=== PATIENT | female | born 1940 | race Caucasian/White ===

== ENCOUNTER 2016-12-08 18:34 | Emergency (ER) | payer MEDICARE, BC ==
--- OUTSIDE RECORDS SUMMARY | 2016-12-08 18:47 | XMS REPORT | CCD ---
:1940 Author Name CHITO WARREN Address [address] Unavailable [place], [place] [id number] Care Team Providers Name Role Phone ROSEANNE FELDMAN Attending Physician Unavailable Vital Signs Unknown or Not Available. Allergies Allergy Code Allergy Type Reaction Status Unknown Code - 0 0 Propensity to adverse reactions Active Procedures Procedure Code Procedure Type Date POLYSOMNOGRAM 8917 ICD-9 CM, Volume 3 11/04/[id number] 11/04/2014 History of Immunizations Unknown or Not Available. Problems Unknown or Not Available. Results Unknown or Not Available. Active Medications Unknown or Not Available. Medications Administered During Visit Unknown or Not Available. Encounters Encounter Diagnosis Diagnosis Code Start Date OBSTRUCTIVE SLEEP APNEA 95744 11/04/2014 Social History Smoking Status Code Start Date End Date Never smoker [id number] Patient Decision Aids Unknown or Not Available. Discharge Instructions You were admitted to [facility] on 11/04/2014 with a principal diagnosis of OBSTRUCTIVE SLEEP APNEA. You had the following procedures done:POLYSOMNOGRAM You were discharged from [facility] on 11/04/2014. Should you have any questions prior to discharge, please contact a member of your healthcare team. If you have left the hospital and have any questions, please contact your primary care physician. Chief Complaint and Reason For Visit Chief Complaint Date of Onset SLEEP STUDY Function Status Unknown or Not Available. Plan of Care Unknown or Not Available. Referral/Transition of Care Unknown or Not Available.
--- OUTSIDE RECORDS SUMMARY | 2016-12-08 18:47 | XMS REPORT | CCD ---
:1940 Author Name CHITO WARREN Address [address] Unavailable [place], [place] [id number] Care Team Providers Name Role Phone ROSEANNE FELDMAN Attending Physician Unavailable Vital Signs Unknown or Not Available. Allergies Allergy Code Allergy Type Reaction Status Unknown Code - 0 0 Propensity to adverse reactions Active Procedures Procedure Code Procedure Type Date POLYSOMNOGRAM 8917 ICD-9 CM, Volume 3 01/07/2015 POLYSOMNOGR W/CPAP [id number] SNOMED CT 01/07/2015 History of Immunizations Unknown or Not Available. Problems Unknown or Not Available. Results Unknown or Not Available. Active Medications Unknown or Not Available. Medications Administered During Visit Unknown or Not Available. Encounters Encounter Diagnosis Diagnosis Code Start Date OBSTRUCTIVE SLEEP APNEA 76092 01/07/2015 Social History Smoking Status Code Start Date End Date Never smoker [id number] Patient Decision Aids Unknown or Not Available. Discharge Instructions You were admitted to [facility] on 01/07/2015 with a principal diagnosis of OBSTRUCTIVE SLEEP APNEA. You had the following procedures done:POLYSOMNOGRAM You were discharged from [facility] on 01/07/2015. Should you have any questions prior to [...]
[2016-12-08] MEDS ORDERED: DOXYCYCLINE HYCLATE 100 MG TABLET PO ONE (18:49)
[2016-12-08] MEDS ORDERED: METHYLPREDNISOLONE SOD SUCC/PF 40 MG/ML VIAL IM ONE (18:49)
[2016-12-08] MEDS ORDERED: DOXYCYCLINE HYCLATE 100 MG TABLET ONE (18:51)
[2016-12-08] MEDS ORDERED: METHYLPREDNISOLONE SOD SUCC/PF 40 MG/ML VIAL ONE (18:51)
[2016-12-08] MEDS ORDERED: CLINDAMYCIN HCL 150 MG CAPSULE ONE (19:00)
[2016-12-08] MEDS ORDERED: CLINDAMYCIN HCL 150 MG CAPSULE PO ONE (19:01)
--- NOTE | 2016-12-08 19:02 | ERNOTE ---
Integumentary HPI - Narrative Date of Service: 12/08/16 - General Presenting Symptoms: insect bite Time Seen by Provider: 12/08/16 18:41 Source: patient Exam Limitations: no limitations - Immun/Allergies/Home Medications Immunizations: IMMUNIZATION HX Immunizations Up to Date Yes History of Influenza Vaccine Yes Hx Pneumococcal Vaccination Yes Allergies/Adverse Reactions: Allergies Allergy/AdvReac Type Severity Reaction Status Date / Time latex Allergy Verified 12/08/16 18:42 Home Medications: HOME MEDICATIONS Clindamycin HCl [Cleocin HCl] 300 mg PO TID #21 capsule 12/08/16 [Last Taken Unknown] Levothyroxine Sodium [Synthroid] 100 mcg PO DAILY 12/08/16 [Last Taken Unknown] predniSONE [Prednisone] See Taper PO DAILY #18 tablet 12/08/16 [Last Taken Unknown] - Pain Pain Score: 3 - History of Present Illness Narrative: 76 field female presents to the emergency room for a wasp sting to her left arm. Patient states that she was better yesterday and the area has continued to grow bigger and redder she is now having pain as going up the back of her arm. Patient denies being allergic to wasps. Date (Duration): 12/08/16 Location: Reports: upper extremity Quality: Reports: painful Severity: mild Exposure: Reports: insect bite/spider Modifying Factors - (Improves): Reports: nothing Modifying Factors - (Worsens): Reports: nothing Associated Symptoms: Reports: edema, fever Review of Systems - Review of Systems Constitutional: Present: no symptoms reported EYE: Present: no symptoms reported ENT: Present: no symptoms reported Respiratory: Present: no symptoms reported Cardiology: Present: no symptoms reported Gastrointestinal/Abdominal: Present: no symptoms reported Genitourinary: Present: no symptoms reported Musculoskeletal: Present: no symptoms reported Skin: Present: See HPI, rash, change in color Neurological: Present: no symptoms reported Endocrine: Present: no symptoms reported Hematologic/Lymphatic: Present: no symptoms reported Psych: Present: no symptoms reported All Other Systems: All systems neg except as marked - Patient's Past Medical History Patient History - Medical: GERD, Other Patient History - Cardiac/Respiratory: CPAP/BiPAP Home Use, Sleep Apnea Patient History - Cancer: No Hx of Cancer Patient History - Surgical Procedures: Cholecystectomy, Total Hip Replacement, Total Knee Replacement, Other, Urology Patient History - Other: None - Social History Living Situations: home Abuse History: No History of abuse Psych History: No pertinent hx Smoking Status: Never smoker Alcohol Use: rarely Drug Use: none - Immunizations Immunizations Up to Date: Yes Hx Pneumococcal Vaccination: Yes History of Influenza Vaccine: Yes Physical Exam - Physical Exam Narrative: Patient states she was bit by a wasp on her left forearm left forearm is red warm and tender to touch. Pulses are good distally and proximally to left arm range of motion is within normal limits General Appearance: Present: wd/wn, alert, no apparent distress Head Exam: Present: normal inspection, no evidence of injury Eye Exam: Normal inspection: bilateral Ears, Nose, Throat: Present: normal ENT inspection, normal pharynx Neck: Present: normal inspection, nontender Respiratory: Present: no respiratory distress, normal breath sounds, no accessory muscle use, chest nontender, lungs clear. Absent: crackles, rales, rhonchi, stridor, wheezing Cardiovascular/Chest: Present: regular rate, rhythm, no murmur, normal peripheral pulses Peripheral Pulses: N=norm/S=strong/W=weak/B=bound/A=absent: Radial (R): Normal, Radial (L): Normal Gastrointestinal/Abdominal: Present: normal bowel sounds, nontender, soft Back Exam: Present: normal inspection, normal range of motion, no CVA tenderness , no vertebral tenderness Extremity Exam: Present: normal inspection, normal range of motion Neurological Exam: Present: alert, oriented, normal mood/affect, no motor/ sensory deficits Skin Exam: Present: warm/dry, other Lymphatic Exam: Present: no adenopathy ED Progress - Vital Signs Patient's Vital Signs:: I have reviewed the patient's vital signs. Vital Signs: Vital Signs 12/08/16 18:37 Temperature 37.3 C Pulse Rate 84 Respiratory 18 Rate Blood Pressure 126/69 O2 Sat by Pulse 94 Oximetry - Progress/Reassessment Chief Complaint: Insect Bite Progress:: Improved Departure Clinical Impression: Cellulitis Qualifiers: Site of cellulitis: extremity Site of cellulitis of extremity: upper extremity Laterality: right Qualified Code(s): L03.113 - Cellulitis of right upper limb - Departure Disposition: Home self-care Condition: Good Instructions: Cellulitis, Adult, Nong-ie-Fhoh, Insect Bite Additional Instructions: Continue any previous home medications as directed. Take all antibiotics and steroids as directed. Follow-up with the primary care in the next 2-3 days if needed. Return to emergency room if symptoms persist or become worse. Referrals: Katharine Storey MD [Primary Care Provider] - Prescriptions: Clindamycin HCl [Cleocin HCl] 300 mg PO TID #21 capsule predniSONE [Prednisone] See Taper PO DAILY #18 tablet
[2016-12-08 19:10] VITALS: BP 123/75
[2016-12-08] MEDS ORDERED: MAG HYDROX/ALUMINUM HYD/SIMETH 30 ML UDC PO ONE (19:17)
== END 2016-12-08 19:20 | disposition home or self-care (01) ==
LOC: ER 18:34
DX: L03.114 Cellulitis of left upper limb (principal)

== ENCOUNTER 2017-02-14 07:15 | Day surgery (SDC) | payer MEDICARE, BC ==
[~2017-02-14 07:15] MED LIST: RINGER'S SOLUTION,LACTATED 1,000 ML IV PRN
[2017-02-14 08:08] LABS: Hemoglobin 13.9 gm/dL (12.5-16.0); Mean Cell Volume 90.7 fl (78-100); Mean Corpuscular Hemoglobin 29.3 pg (27-31); Mean Corpuscular Hgb Conc 32.3 g/dl (32-36); Mean Platelet Volume 8.5 fl (6.0-9.5); Neutrophil # 4.2 K/mm3 (1.3-6.0); Neutrophil % 59.5 % (42-75.0); Platelet Count 210 K/mm3 (150-450); Red Blood Count 4.74 M/mm3 (4.2-5.4); Red Cell Distribution Width 13.2 % (11.5-14.0)
[2017-02-14] MEDS ORDERED: RINGER'S SOLUTION,LACTATED 1,000 ML IV ONE (08:15)
[2017-02-14] MEDS ORDERED: Silver Nitrate Applicator 10 EACH PACKET TP ONE (08:48)
[2017-02-14] MEDS ORDERED: IBUPROFEN 600 MG TABLET PO PRN (09:06)
[2017-02-14 10:28] VITALS: BP 115/73
--- NOTE | 2017-02-14 10:59 | OR ---
Operative Report - Dictated Report Narrative: Operative Report 02/14/17 Hysteroscopy Dilatation and Curettage Preoperative Diagnosis: Postmenopausal Bleeding, Cervical Stenosis, Abnormal Appearance of the Endometrium, Left Labial Lesion Postoperative Diagnosis: Postmenopausal Bleeding, Cervical Stenosis, Abnormal Appearance of the Endometrium, Endometrial Polyp, Left Labial Lesion Procedure: Hysteroscopy Dilatation and Curettage, Excision of Left Labial Lesion Surgeon: Endeina Squires M.D. Anesthesia: George Zavala CRNA, IV sedation Findings: Cervical Stenosis. Uterine sound was 7 cm. There was a 2 cm endometrial polyp on the left fundus removed with sharp dissection. There was no evidence of Fluids: 650 ml EBL: Minimal Drains: None Complications: None Condition: Stable Pathology: Endometrial polyp and scant curettings, Left labial lesion Procedure: The patient was taken to the operating room with IV fluids running. She was placed in the dorsal lithotomy position after anesthesia was induced. A bivalve speculum was placed in the vagina. The anterior lip of the cervix was grasped with a single-tooth tenaculum. Uterine sound was attempted to pass but was unsuccessful due to cervical stenosis. 2.5 mm hysteroscope was used to navigate through the cervical canal. The endometrium was visualized and polyp was noted. Uterine sound was passed into the endometrial cavity with ease. Uterine sound was 7 cm. The cervix was dilated with Mando dilators. The hysteroscope was introduced into the endometrial cavity. The cavity was distended with normal saline. [place] were visualized bilaterally. The endometrial polyp was removed with sharp dissection using hysteroscopic graspers and scissors. The hysteroscope was removed. The cavity was sharply curetted without difficulty. The hysteroscope was once again introduced into the cavity. The cavity was completely curetted. The hysteroscope was removed. The single-tooth tenaculum was removed. Sites were hemostatic. The speculum was removed from the vagina. Sponge counts were correct 2. The patient tolerated the procedure well.
== END 2017-02-14 07:16 | disposition home or self-care (01) ==
LOC: AMB 07:15
PROVIDERS: ATTEND Obstetrics & Gynecology
PROC: 0UDB7ZX Extraction of Endometrium, Via Natural or Artificial Opening, Diagnostic (ICD-10-PCS; 2017-02-14)
PROC: 0UBMXZZ Excision of Vulva, External Approach (ICD-10-PCS; 2017-02-14)
PROC: 0UB98ZX Excision of Uterus, Via Natural or Artificial Opening Endoscopic, Diagnostic (ICD-10-PCS; principal; 2017-02-14 08:30)
DX: N84.0 Polyp of corpus uteri (principal); N88.2 Stricture and stenosis of cervix uteri; E03.9 Hypothyroidism, unspecified; K21.9 Gastro-esophageal reflux disease without esophagitis; E55.9 Vitamin D deficiency, unspecified; Z68.36 Body mass index [BMI] 36.0-36.9, adult; L91.8 Other hypertrophic disorders of the skin

== ENCOUNTER 2020-03-24 11:16 | Observation (INO) ==
[2020-03-24] MEDS ORDERED: NORMAL SALINE 1,000 ML IV ONE (12:26)
[2020-03-24] MEDS ORDERED: diphenhydrAMINE HCL 50 MG/ML VIAL IV ONE (12:26)
[2020-03-24] MEDS ORDERED: METOCLOPRAMIDE HCL 5 MG/ML VIAL IV ONE (12:26)
[2020-03-24] MEDS ORDERED: MORPHINE SULFATE 10 MG/ML SYRG IV ONE (12:26)
--- NOTE | 2020-03-24 13:34 | ERNOTE ---
Back Pain ER HPI Date of Service: 03/24/20 Presenting Symptoms: injury/pain to back Time Seen by Provider: 03/24/20 12:17 Source: patient, family, RN notes reviewed, past records Exam Limitations: clinical condition Immunizations: IMMUNIZATION HX Immunizations Up to Date Yes History of Influenza Vaccine Yes Hx Pneumococcal Vaccination Yes Allergies/Adverse Reactions: Allergies adhesive tape Allergy (Unknown, Verified 01/13/20 10:24) Home Medications: HOME MEDICATIONS Cholecalciferol (Vitamin D3) [Vitamin D3] 1,000 unit PO DAILY 02/09/17 [Last Taken Unknown] multivitamin 1 tab PO DAILY 10/17/18 [Last Taken Unknown] magnesium 250 mg tablet 250 mg PO DAILY 02/25/19 [Last Taken Unknown] CPAP Mask and Supplies 0 .ROUTE .MEDSUPPLY #1 ea 03/18/19 [Last Taken Unknown] vitamin B12 0.5 mg-folic acid 1 mg tablet 1 tab PO DAILY 05/03/19 [Last Taken Unknown] furosemide 20 mg tablet See Rx Instructions .ROUTE .COMPLEX #90 unknown measurement unit code: tablet 11/06/19 [Last Taken Unknown] amoxicillin 875 mg-potassium clavulanate 125 mg tablet 1 tab PO BID #20 tab 01/13/20 [Last Taken Unknown] gabapentin 300 mg capsule 300 mg PO TID 01/13/20 [Last Taken Unknown] omeprazole 20 mg tablet,delayed release 20 mg PO DAILY #30 tab 03/16/20 [Last Taken Unknown] levothyroxine 100 mcg tablet See Rx Instructions .ROUTE .COMPLEX #90 unknown measurement unit code: tablet 03/23/20 [Last Taken Unknown] Narrative: Kennedi is a 79 year old female brought to the ED from home by her for severe back pain. She has a history of a metastatic tumor at T12 due to renal cell carcinoma. She underwent a kyphoplasty on 03/05 at [facility]. She has since transferred her care to an oncologist at [facility]. She had been recovering well from her procedure until around midnight when she suddenly began having extreme pain. She took Dilaudid 2mg at 0700 without improvement. She has still been receiving chemotherapy. She denies any injury. She also denies any fevers or chills. Date (Duration): 03/24/20 Time (Timing): 00:00 Timing: Reports: constant Quality/Severity: Reports: severe Location of pain: Reports: mid back Activities at Onset: Reports: none Recent Injury?: Reports: no Possible Precipitating Factor: Reports: none Modifying Factors - (Improves): Reports: nothing Modifying Factors - (Worsens): Reports: other - any movement Associated Symptoms: Reports: difficulty walking. Denies: fever/chills, nausea/vomiting, numbess/weakness in legs Prior Treament: Denies: recently seen Review of Systems - Review of Systems Constitutional: Absent: recent illness, fever, chills EYE: Present: no symptoms reported ENT: Present: no symptoms reported Respiratory: Absent: shortness of breath, cough Cardiology: Absent: chest pain, syncope Gastrointestinal/Abdominal: Absent: nausea, vomiting, abdominal pain Genitourinary: Present: no symptoms reported Musculoskeletal: Present: back pain. Absent: neck pain, joint pain Skin: Absent: lesions, lumps, change in color Neurological: Absent: weakness, numbness Endocrine: Present: no symptoms reported Hematologic/Lymphatic: Absent: easy bruising, easy bleeding Psych: Present: no symptoms reported Medical History (Last Reviewed 03/24/20 @ 17:29 by Deepti Lopez NP) Hypothyroidism Atrophic vaginitis Onset Date: Unknown GERD (gastroesophageal reflux disease) Onset Date: Unknown Plantar fasciitis Onset Date: Unknown Spondylosis Onset Date: Unknown Vitamin D deficiency Onset Date: Unknown Surgical History: Surgical History (Last Reviewed 03/24/20 @ 17:29 by Deepti Lopez NP) History of left knee replacement History of nephrectomy, right Onset Date: ~10/27/18 [facility] kidney cancer 2019 Hx of bilateral mastectomy Onset Date: ~03/05/19 [facility] breast cancer, 2019 History of arthroscopic knee surgery Onset Date: ~2005 History of bilateral cataract extraction Onset Date: ~2010 History of cholecystectomy Onset Date: Unknown History of colonoscopy Onset Date: ~2008 History of dilation and curettage Onset Date: ~02/14/17 History of foot surgery Onset Date: ~2012 Left History of knee replacement procedure of right knee Onset Date: ~2015 History of left hip replacement Onset Date: ~2013 Family History: Family History (Last Reviewed 03/24/20 @ 17:29 by Deepti Lopez NP) Father Old age Mother Diabetes Social History: (Last Reviewed 03/24/20 @ 17:29 by Deepti Gellatly, [employer]) Social History: Marital status: household members: spouse Service: No Tobacco: Smoking Status: Never smoker Alcohol: alcohol intake: current Substance Use: substance use type: does not use Dietary Habits: caffeine: Yes Physical Exam - Physical Exam General Appearance: Present: wd/wn, alert, severe distress, other - Cries out with movement Head Exam: Present: normal inspection Eye Exam: Normal inspection: bilateral Neck: Present: normal inspection, nontender, supple Respiratory: Present: no respiratory distress, normal breath sounds, no accessory muscle use, lungs clear Cardiovascular/Chest: Present: no murmur, normal peripheral pulses, tachycardia Peripheral Pulses: N=norm/S=strong/W=weak/B=bound/A=absent: Dorsalis-pedis (R): Normal, Dorsalis-pedis (L): Normal Gastrointestinal/Abdominal: Present: nontender, nondistended, soft Back Exam: Present: vertebral tenderness - Lower thoracic/upper lumbar region, decreased range of motion, muscle spasm Extremity Exam: Present: normal inspection, non-tender, normal range of motion Neurological Exam: Present: alert, oriented, normal mood/affect, no motor/sensory deficits Skin Exam: Present: normal color, warm/dry Progress - Results and Orders Patient's Lab Results:: I have reviewed the patient's lab results. - Vital Signs Patient's Vital Signs:: I have reviewed the patient's vital signs. Vital Signs: Vital Signs 03/24/20 11:16 Temperature 37.5 C Pulse Rate 105 H Respiratory Rate 20 Blood Pressure 186/117 H O2 Sat by Pulse Oximetry 98 - CT/Ultrasound CT/Ultrasound Narrative: CT Thoracic W/O * HISTORY:recent kyphoplasty T12, severe pain, bone mets severe mid back pain since midnight. History of recent kyphoplasty. EXAMINATION: Continuous unenhanced axial CT images were acquired through the thoracic spine per protocol. Coronal and sagittal reformatted images are provided. Individualized dose optimization technique was used for the performed procedure including automated exposure control, adjustment of the mA and/or kV according to patient size and/or the iterative reconstruction technique. COMPARISON: None. Correlation is made with CT abdomen and pelvis dated January 13, 2020. FINDINGS: There are 12 thoracic rib bearing vertebral bodies. Alignment is anatomic. There is a pathologic fracture deformity at T12 with changes from kyphoplasty. Slight retropulsion of the posterior cortex and the spinal canal by approximately 4 mm with at least mild spinal canal stenosis. The thoracic vertebral body heights are otherwise maintained. No other thoracic spine fractures are identified. Degenerative changes noted. Heterogeneous appearance of the bone marrow. Small left pleural effusion. Bibasilar atelectasis versus airspace disease. Atherosclerotic calcifications. Carotid calcifications noted. Left anterior chest wall Mediport catheter with the tip terminating in the superior vena cava. Left upper lung calcified granuloma. IMPRESSION: Changes from T12 kyphoplasty with associated pathologic fracture. Thoracic vertebral body heights are otherwise maintained. Nonspecific appearance of the bone marrow. Nonemergent MRI correlation could be considered to evaluate for bone marrow infiltration. Electronically signed by Gaurang Welch D.O.. CT Lumbar W/O * HISTORY:kyphoplasty T12 03/05, bone mets, severe pain severe mid to lower back pain since midnight. Kyphoplasty recently. EXAMINATION: Continuous unenhanced axial CT images were acquired through the lumbar spine per protocol. Coronal and sagittal reformatted images are provided. Individualized dose optimization technique was used for the performed procedure including automated exposure control, adjustment of the mA and/or kV according to patient size and/or the iterative reconstruction technique. COMPARISON: CT dated January 13, 2020. FINDINGS: There are 5 nonrib-bearing lumbar type vertebral bodies. There is nonspecific straightening of the normal lumbar lordosis. Mild grade 1 anterolisthesis of L5 on S1. Chronic appearing bilateral L5 pars defects. Changes from T12, L3, and L5 kyphoplasty. Pathologic fracture at T12 with mild loss of height and slight retropulsion of the posterior cortex into the spinal canal by approximately 4 mm with at least mild spinal canal stenosis. Vertebral body heights are otherwise maintained. Multifocal ill-defined lucencies noted throughout the lumbar vertebral bodies. Again demonstrated is a soft tissue mass at the left prevertebral T12 region with destruction of the left T12 vertebral body. Also, there appears to be new destruction of the left anterior L1 vertebral body. Changes from right nephrectomy. Changes from cholecystectomy. Abdominal aorta atherosclerotic calcifications. IMPRESSION: Changes from T12, L3, and L5 kyphoplasty. Pathologic fracture at T12, as above. Remaining vertebral body heights are maintained. There is new cortical destruction at the left anterior L1 vertebral body, compatible with progression of disease. Additional findings and comments are as above. Electronically signed by Gaurang Welch D.O.. - Progress/Reassessment Chief Complaint: Back Pain Progress:: Unchanged Plan - Plan Plan: The patient is more comfortable after several medications for pain but still has severe muscle spasms with minimal movement. Her CT shows a pathologic fracture of T12 as well as metastasis at L1. Dr. Garcia was contacted and the patient will be admitted for pain management and further observation. Departure Clinical Impression: Metastatic renal cell carcinoma to bone, Intractable back pain T12 compression fracture Qualifiers: Encounter type: initial encounter Qualified Code(s): S22.080A - Wedge compression fracture of T11-T12 vertebra, initial encounter for closed fracture - Departure Disposition: Still a patient Condition: Stable Referrals: Katharine Storey MD [Primary Care Provider] -
[2020-03-24] MEDS ORDERED: ORPHENADRINE CITRATE 30 MG/ML VIAL IV ONE (14:19)
[2020-03-24] MEDS ORDERED: ORPHENADRINE CITRATE 30 MG/ML VIAL ONE (14:19)
[2020-03-24 15:18] LABS: Hematocrit 44.4 % (37.0-47.0); Hemoglobin 14.5 gm/dL (12.5-16.0); Mean Cell Volume 92.9 fl (78-100); Mean Corpuscular Hemoglobin 30.3 pg (27-31); Mean Corpuscular Hgb Conc 32.7 g/dl (32-36); Neutrophil # 8.1 K/mm3 (1.3-6.0); Neutrophil % 78.1 % (42-75.0); Platelet Count 198 K/mm3 (150-450); Red Blood Count 4.78 M/mm3 (4.2-5.4); White Blood Count 10.3 K/mm3 (4.0-10.5)
[2020-03-24 15:27] LABS: Albumin * 3.4 gm/dl (3.4-5.0); Anion Gap 13.4 mmol/L (6.8-13.8); BUN/Creatinine Ratio 12.5 (9.0-21.6); Bilirubin, Total 0.7 mg/dL (0.0-1.1); Ca. Corrected For Albumin 9.9 mg/dL (8.4-10.2); Calcium * 9.7 mg/dL (7.9-10.9); Carbon Dioxide 28.7 mmol/L (24-32.6); Potassium 4.1 mmol/L (3.4-4.6); Total Protein 7.8 gm/dL (6.2-8.2)
[2020-03-24] MEDS ORDERED: MORPHINE SULFATE 4 MG/ML SYRG IV ONE (17:28)
--- NOTE | 2020-03-24 19:56 | HP ---
Chief Complaint - Chief Complaint Date of Service: 03/24/20 Time of Service: 19:55 Chief Complaint: intractable back pain/spasms History of Present Illness: Kennedi Squires is a 79-year-old white female with past medical history of invasive ductal breast carcinoma in 08/2018 status post bilateral mastectomy in 02/2019 , metastatic renal cell carcinoma to the bone, T12 compression fracture who was admitted on 03/24/2020 because of severe back pain. 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 In 11/21/2019 she had new large masses noted at T12, L2 and L3, left upper lobe nodule and liver lesion. She received radiotherapy to T12, L2 and L3. She is receiving Pembro and axitinib in the [facility] and [facility]. Her oncologist is Dr. Carrasco. She underwent kyphoplasty on 03/05/2020 at [facility]. Today her back pain became severe associated with intermittent back muscle spasms. She denies any fever or chills. Her CT scan of her thoracic spine showed -Changes from T12 kyphoplasty with associated pathologic fracture. Thoracic vertebral body heights are otherwise maintained. Nonspecific appearance of the bone marrow. Nonemergent MRI correlation could be considered to evaluate for bone marrow infiltration. Her CT scan of her lumbar spine showed -Changes from T12, L3, and L5 kyphoplasty. Pathologic fracture at T12, as above. Remaining vertebral body heights are maintained. There is new cortical destruction at the left anterior L1 vertebral body, compatible with progression of disease. Her blood work showed a WBC count of 10.3, hemoglobin of 14.5, platelet of 198, electrolytes within normal limits, GFR of 46, random blood sugar of 97, liver function test within normal limits, CRP of 4.8 and ESR of 61. She was given IV morphine and Norflex and was admitted for pain control of her intractable back pain. Medical History (Last Reviewed 03/24/20 @ 19:07 by Deidra Stockton RN) Hypothyroidism Atrophic vaginitis Onset Date: Unknown GERD (gastroesophageal reflux disease) Onset Date: Unknown Plantar fasciitis Onset Date: Unknown Spondylosis Onset Date: Unknown Vitamin D deficiency Onset Date: Unknown Surgical History: Surgical History (Last Reviewed 03/24/20 @ 19:07 by Deidra Stockton RN) History of left knee replacement History of nephrectomy, right Onset Date: ~10/27/18 [facility] kidney cancer 2019 Hx of bilateral mastectomy Onset Date: ~03/05/19 [facility] breast cancer, 2019 History of arthroscopic knee surgery Onset Date: ~2005 History of bilateral cataract extraction Onset Date: ~2010 History of cholecystectomy Onset Date: Unknown History of colonoscopy Onset Date: ~2008 History of dilation and curettage Onset Date: ~02/14/17 History of foot surgery Onset Date: ~2012 Left History of knee replacement procedure of right knee Onset Date: ~2015 History of left hip replacement Onset Date: ~2013 Family History: Family History (Last Reviewed 03/24/20 @ 19:07 by Deidra Stockton RN) Father Old age Mother Diabetes Social History: (Last Reviewed 03/24/20 @ 19:07 by Deidra Stockton RN) Social History: Marital status: household members: spouse Service: No Tobacco: Smoking Status: Never smoker Alcohol: alcohol intake: current Substance Use: substance use type: does not use Dietary Habits: caffeine: Yes Review Of Systems (GEN) - Review of Systems Generalized/Overall Review: Present: Weakness. Absent: Chills EENTM: Absent: Blurred Vision Respiratory: Absent: Cough, Shortness of Breath, Orthopnea Cardiac: Absent: Chest Pain, Edema, Palpitations Abdominal: Absent: Nausea, Vomiting Genitourinary: Absent: Urgency, Frequency Musculoskeletal: Present: Back Pain, Muscle Pain Neurological: Absent: Headache Skin: Absent: Lesions, Rash Misc: All systems neg except as marked Immunizations: IMMUNIZATION HX Immunizations Up to Date Yes History of Influenza Vaccine Yes Hx Pneumococcal Vaccination Yes Allergies/Adverse Reactions: Allergies Allergy/AdvReac Type Severity Reaction Status Date / Time adhesive tape Allergy Unknown Verified 01/13/20 10:24 Home Medications: HOME MEDICATIONS Cholecalciferol (Vitamin D3) [Vitamin D3] 1,000 unit PO DAILY 02/09/17 [Last Taken Unknown] multivitamin 1 tab PO DAILY 10/17/18 [Last Taken Unknown] magnesium 250 mg tablet 250 mg PO DAILY 02/25/19 [Last Taken Unknown] CPAP Mask and Supplies 0 .ROUTE .MEDSUPPLY #1 ea 03/18/19 [Last Taken Unknown] vitamin B12 0.5 mg-folic acid 1 mg tablet 1 tab PO DAILY 05/03/19 [Last Taken Unknown] amoxicillin 875 mg-potassium clavulanate 125 mg tablet 1 tab PO BID #20 tab 01/13/20 [Last Taken Unknown] gabapentin 300 mg capsule 300 mg PO TID 01/13/20 [Last Taken Unknown] omeprazole 20 mg tablet,delayed release 20 mg PO DAILY #30 tab 03/16/20 [Last Taken Unknown] levothyroxine 100 mcg tablet See Rx Instructions .ROUTE .COMPLEX #90 unknown measurement unit code: tablet 03/23/20 [Last Taken Unknown] Axitinib [Inlyta] 5 mg PO BID 03/24/20 [Last Taken Unknown] Calcium Carbonate/Vitamin D3 [Calcium 500-Vit D3 200 Tablet] 1 ea PO BID 03/24/20 [Last Taken Unknown] Furosemide 1 tab DENTAL DAILY 03/24/20 [Last Taken Unknown] Hydromorphone HCl [Dilaudid] 2 mg PO Q4H PRN 03/24/20 [Last Taken Unknown] Pyridoxine HCl (Vitamin B6) [Vitamin B-6] 100 mg PO DAILY 03/24/20 [Last Taken Unknown] Sennosides/Docusate Sodium [Stool Softener-Stim Lax Tablet] 2 ea PO BID 03/24/20 [Last Taken Unknown] Vit A/Vit C/Vit E/Zinc/Copper [Preservision Areds Softgel] 1 ea PO BID 03/24/20 [Last Taken Unknown] Exam - Exam Vital Signs: Vital Signs - Last Taken Temp 37.1 C 03/24/20 18:54 Pulse 106 H 03/24/20 18:54 Resp 20 03/24/20 18:54 BP 140/116 H 03/24/20 18:54 Pulse Ox 91 L 03/24/20 18:54 Constitutional: Present: Alert, Oriented x3, Cooperative, Elderly ENT Exam: Present: hearing grossly normal Eye Exam: bilateral eye: normal inspection, PERRL, EOMI Neck: Present: supple. Absent: lymphadenopathy (R), lymphadenopathy (L) Respiratory: Present: decreased breath sounds, No rales, No wheezing Cardiovascular/Chest: Present: regular rate, rhythm, no JVD, no murmur Abdomen: Present: Normal bowel sounds, soft, nontender, nondistended Extremity: Present: no calf tenderness, lower extremity edema - Trace Diagnostic Studies: Abnormal Lab Results 03/24/20 03/24/20 03/24/20 Range/Units 15:05 15:05 15:05 Immature Gran % (Auto) 0.50 H (0.001-0.429) % Immature Gran # (Auto) 0.05 H (0.000-0.0310) K/mm3 Neutrophils % 78.1 H (42-75.0) % Lymphocytes % 10.6 L (20-51) % Monocytes % 9.1 H (0.0-9) % Neutrophils # 8.1 H (1.3-6.0) K/mm3 Lymphocytes # 1.09 L (1.5-3.5) k/mm3 ESR 61 H (0-15) mm/hr Est GFR (Non-Af Amer) 46 L (60-130) mL/min C-Reactive Prot, Quant (0.0-0.9) mg/dL 03/24/20 Range/Units 15:05 Immature Gran % (Auto) (0.001-0.429) % Immature Gran # (Auto) (0.000-0.0310) K/mm3 Neutrophils % (42-75.0) % Lymphocytes % (20-51) % Monocytes % (0.0-9) % Neutrophils # (1.3-6.0) K/mm3 Lymphocytes # (1.5-3.5) k/mm3 ESR (0-15) mm/hr Est GFR (Non-Af Amer) (60-130) mL/min C-Reactive Prot, Quant 4.8 H (0.0-0.9) mg/dL Laboratory Results WBC 10.3 K/mm3 (4.0-10.5) 03/24/20 15:05 RBC 4.78 M/mm3 (4.2-5.4) 03/24/20 15:05 Hgb 14.5 gm/dL (12.5-16.0) 03/24/20 15:05 Hct 44.4 % (37.0-47.0) 03/24/20 15:05 MCV 92.9 fl (78-100) 03/24/20 15:05 MCH 30.3 pg (27-31) 03/24/20 15:05 MCHC 32.7 g/dl (32-36) 03/24/20 15:05 RDW 14.0 % (11.5-14.0) 03/24/20 15:05 Plt Count 198 K/mm3 (150-450) 03/24/20 15:05 MPV 8.0 fl (8-12.5) 03/24/20 15:05 Immature Gran % (Auto) 0.50 % (0.001-0.429) H 03/24/20 15:05 Immature Gran # (Auto) 0.05 K/mm3 (0.000-0.0310) H 03/24/20 15:05 Neutrophils % 78.1 % (42-75.0) H 03/24/20 15:05 Lymphocytes % 10.6 % (20-51) L 03/24/20 15:05 Monocytes % 9.1 % (0.0-9) H 03/24/20 15:05 Eosinophils % 1.3 % (0.0-3.0) 03/24/20 15:05 Basophils % 0.4 % (0.0-1.0) 03/24/20 15:05 Nucleated RBC % 0.0 k/mm3 (0-1) 03/24/20 15:05 Neutrophils # 8.1 K/mm3 (1.3-6.0) H 03/24/20 15:05 Lymphocytes # 1.09 k/mm3 (1.5-3.5) L 03/24/20 15:05 Monocytes # 0.9 k/mm3 (0.0-1.0) 03/24/20 15:05 Eosinophils # 0.1 k/mm3 (0.0-0.7) 03/24/20 15:05 Absolute Basophils 0.0 k/mm3 (0.0-0.1) 03/24/20 15:05 ESR 61 mm/hr (0-15) H 03/24/20 15:05 Sodium 139 mmol/L (132-142) 03/24/20 15:05 Plasma Sodium 139 mmol/L (130-142) 03/24/20 15:05 Potassium 4.1 mmol/L (3.4-4.6) 03/24/20 15:05 Chloride 101 mmol/L (97-106) 03/24/20 15:05 Carbon Dioxide 28.7 mmol/L (24-32.6) 03/24/20 15:05 Anion Gap 13.4 mmol/L (6.8-13.8) 03/24/20 15:05 BUN 15 mg/dL (3-23) 03/24/20 15:05 Creatinine 1.20 mg/dL (0.4-1.4) 03/24/20 15:05 Est GFR (Non-Af Amer) 46 mL/min (60-130) L 03/24/20 15:05 BUN/Creatinine Ratio 12.5 (9.0-21.6) 03/24/20 15:05 Random Glucose 97 mg/dL (70-110) 03/24/20 15:05 Lactic Acid, Venous 1.9 mmol/L (0.4-2.0) 03/24/20 15:05 Calcium 9.7 mg/dL (7.9-10.9) 03/24/20 15:05 Calcium Adj for Albumin 9.9 mg/dL (8.4-10.2) 03/24/20 15:05 Total Bilirubin 0.7 mg/dL (0.0-1.1) 03/24/20 15:05 AST 32 U/L (0-48) 03/24/20 15:05 ALT 32 U/L (19-67) 03/24/20 15:05 Alkaline Phosphatase 120 U/L (50-170) 03/24/20 15:05 C-Reactive Prot, Quant 4.8 mg/dL (0.0-0.9) H 03/24/20 15:05 Total Protein 7.8 gm/dL (6.2-8.2) 03/24/20 15:05 Albumin 3.4 gm/dl (3.4-5.0) 03/24/20 15:05 SARS-CoV-2 (PCR) Not detected (NotDetected) 03/24/20 16:49 Assessment/Plan - Narrative Narrative: Kennedi is a 79-year-old white female who was admitted for intractable low back pain associated with intermittent muscle back spasms due to metastatic renal cell cancer to the spine with progression and new cortical destruction of the left anterior L1 vertebral body. The patient will be admitted for pain control and if not better consider transfer for radiotherapy again. We will give her IV morphine 5 mg every 6 hours as needed for pain as well as cyclobenzaprine 10 mg p.o. 3 times daily as needed for back muscle spasms. We will talk to the family and patient tomorrow consideration for hospice/comfort care. The patient is too sleepy and drowsy tonight to talk about this. - Assessment/Plan (1) Intractable back pain Problem: Acute (2) T12 compression fracture Problem: Acute Qualifiers: Encounter type: initial encounter Qualified Code(s): S22.080A - Wedge compression fracture of T11-T12 vertebra, initial encounter for closed fracture (3) Renal cancer Problem: Acute (4) Breast cancer Problem: Acute (5) Metastatic renal cell carcinoma to bone Problem: Chronic (6) History of bilateral breast cancer Problem: Chronic (7) Chronic renal failure Problem: Chronic Qualifiers: Chronic kidney disease stage: stage 3 (moderate) Chronic kidney disease stage 3 subtype: stage 3a (GFR 45-59) Qualified Code(s): N18.31 - Chronic kidney disease, stage 3a
[2020-03-24] MEDS: MORPHINE SULFATE 10 MG/ML SYRG IV PRN (20:34)
[2020-03-24] MEDS: CYCLOBENZAPRINE HCL 10 MG TABLET PO PRN (20:34)
[2020-03-24] MEDS: SENNOSIDES/DOCUSATE SODIUM 1 TAB TABLET PO SCH (21:17)
[2020-03-24] MEDS: CALCIUM CARBONATE/VITAMIN D3 1 TAB TABLET PO SCH (21:17)
[2020-03-25] MEDS: CYCLOBENZAPRINE HCL 10 MG TABLET PO PRN ×2 (00:36→04:40)
[2020-03-25] MEDS: MORPHINE SULFATE 10 MG/ML SYRG IV PRN ×5 (00:36→17:27)
[2020-03-25 05:08] LABS: Urine Bilirubin Negative (NEGATIVE); Urine Blood 25 /ul (NEGATIVE); Urine Ketone Negative (NEGATIVE); Urine Nitrite Negative (NEGATIVE); Urine Protein Negative (NEGATIVE); Urine Urobilinogen Normal (NORMAL); Urine pH 6.5 pH (5.0-7.0)
[2020-03-25 05:17] LABS: Urine Appearance Clear (CLEAR); Urine Bacteria 1+; Urine Color Yellow; Urine WBC 0-5 /hpf (0-5)
[2020-03-25] MEDS: AXITINIB 5 MG PO SCH ×2 (06:25→09:11)
[2020-03-25] MEDS ORDERED: PANTOPRAZOLE SODIUM 20 MG TABLET.DR PO SCH (07:00)
[2020-03-25] MEDS ORDERED: LEVOTHYROXINE SODIUM 100 MCG TABLET PO SCH (07:00)
--- NOTE | 2020-03-25 08:22 | DS ---
Transfer Discharge Summary - Diagnosis(s)/Problems (1) Intractable back pain Problem: Acute (2) Compression fracture of L1 lumbar vertebra Narrative: new Problem: Acute (3) T12 compression fracture Problem: Acute (4) Renal cancer Problem: Acute (5) Metastatic renal cell carcinoma to bone Problem: Chronic (6) History of bilateral breast cancer Problem: Chronic (7) Chronic renal failure Problem: Chronic - Course Description of Stay: Kennedi Squires is a 79-year-old white female with past medical history of invasive ductal breast carcinoma in 08/2018 status post bilateral mastectomy in 02/2019 , metastatic renal cell carcinoma to the bone, T12 compression fracture who was admitted on 03/24/2020 because of severe back pain. 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 In 11/21/2019 she had new large masses noted at T12, L2 and L3, left upper lobe nodule and liver lesion. She received radiotherapy to T12, L2 and L3. She is receiving Pembro and axitinib in the [facility]. Her oncologist is Dr. Carrasco. She underwent kyphoplasty on 03/05/2020 at [facility]. Today her back pain became severe associated with intermittent back muscle spasms. It was not rel;ieved with her usual dilaudid. She denies any fever or chills. Her CT scan of her thoracic spine showed -Changes from T12 kyphoplasty with associated pathologic fracture. Thoracic vertebral body heights are otherwise maintained. Nonspecific appearance of the bone marrow. Nonemergent MRI correlation could be considered to evaluate for bone marrow infiltration. Her CT scan of her lumbar spine showed -Changes from T12, L3, and L5 kyphoplasty. Pathologic fracture at T12, as above. Remaining vertebral body heights are maintained. There is new cortical destruction at the left anterior L1 vertebral body, compatible with progression of disease. Her blood work showed a WBC count of 10.3, hemoglobin of 14.5, platelet of 198, electrolytes within normal limits, GFR of 46, random blood sugar of 97, liver function test within normal limits, CRP of 4.8 and ESR of 61. She was given IV morphine and Norflex and was admitted for control of her intractable back pain. She was given cyclobenzaprine for her muscle spasms and IV morphine q 4 hours PRN for back pain . This morning she says her pain is not controlled. We added lidocaine patch and biofreeze. If not succesful, consider fentanyl patch q 72 hours. Her called and said that he talked to her spinal surgeon and oncologist for transfer to [facility]. She was given IV rocephin for possible UTI . UCS is pending. This afternoon her pain is better controlled . She is now going to be transferred to [facility]. Consultation Done:: Dr. Christianson, spine surgeon Procedures Performed: none - Results and Findings Results and Findings: Laboratory Results - last 24 hr 03/24/20 03/24/20 03/24/20 15:05 15:05 15:05 WBC 10.3 RBC 4.78 Hgb 14.5 Hct 44.4 MCV 92.9 MCH 30.3 MCHC 32.7 RDW 14.0 Plt Count 198 MPV 8.0 Immature Gran % (Auto) 0.50 H Immature Gran # (Auto) 0.05 H Neutrophils % 78.1 H Lymphocytes % 10.6 L Monocytes % 9.1 H Eosinophils % 1.3 Basophils % 0.4 Nucleated RBC % 0.0 Neutrophils # 8.1 H Lymphocytes # 1.09 L Monocytes # 0.9 Eosinophils # 0.1 Absolute Basophils 0.0 ESR Sodium 139 Plasma Sodium 139 Potassium 4.1 Chloride 101 Carbon Dioxide 28.7 Anion Gap 13.4 BUN 15 Creatinine 1.20 Est GFR (Non-Af Amer) 46 L BUN/Creatinine Ratio 12.5 Random Glucose 97 Lactic Acid, Venous 1.9 Calcium 9.7 Calcium Adj for Albumin 9.9 Total Bilirubin 0.7 AST 32 ALT 32 Alkaline Phosphatase 120 C-Reactive Prot, Quant Total Protein 7.8 Albumin 3.4 Urine Color Urine Appearance Urine pH Ur Specific Abbot Urine Protein Urine Glucose (UA) Urine Ketones Urine Blood Urine Nitrate Urine Bilirubin Urine Urobilinogen Ur Leukocyte Esterase Urine RBC Urine WBC Ur Epithelial Cells Urine Bacteria Urine Culture Comments SARS-CoV-2 (PCR) 03/24/20 03/24/20 03/24/20 15:05 15:05 16:49 WBC RBC Hgb Hct MCV MCH MCHC RDW Plt Count MPV Immature Gran % (Auto) Immature Gran # (Auto) Neutrophils % Lymphocytes % Monocytes % Eosinophils % Basophils % Nucleated RBC % Neutrophils # Lymphocytes # Monocytes # Eosinophils # Absolute Basophils ESR 61 H Sodium Plasma Sodium Potassium Chloride Carbon Dioxide Anion Gap BUN Creatinine Est GFR (Non-Af Amer) BUN/Creatinine Ratio Random Glucose Lactic Acid, Venous Calcium Calcium Adj for Albumin Total Bilirubin AST ALT Alkaline Phosphatase C-Reactive Prot, Quant 4.8 H Total Protein Albumin Urine Color Urine Appearance Urine pH Ur Specific Abbot Urine Protein Urine Glucose (UA) Urine Ketones Urine Blood Urine Nitrate Urine Bilirubin Urine Urobilinogen Ur Leukocyte Esterase Urine RBC Urine WBC Ur Epithelial Cells Urine Bacteria Urine Culture Comments SARS-CoV-2 (PCR) Not detected 03/25/20 04:55 WBC RBC Hgb Hct MCV MCH MCHC RDW Plt Count MPV Immature Gran % (Auto) Immature Gran # (Auto) Neutrophils % Lymphocytes % Monocytes % Eosinophils % Basophils % Nucleated RBC % Neutrophils # Lymphocytes # Monocytes # Eosinophils # Absolute Basophils ESR Sodium Plasma Sodium Potassium Chloride Carbon Dioxide Anion Gap BUN Creatinine Est GFR (Non-Af Amer) BUN/Creatinine Ratio Random Glucose Lactic Acid, Venous Calcium Calcium Adj for Albumin Total Bilirubin AST ALT Alkaline Phosphatase C-Reactive Prot, Quant Total Protein Albumin Urine Color Yellow Urine Appearance Clear Urine pH 6.5 Ur Specific Abbot 1.020 Urine Protein Negative Urine Glucose (UA) Negative Urine Ketones Negative Urine Blood 25 H Urine Nitrate Negative Urine Bilirubin Negative Urine Urobilinogen Normal Ur Leukocyte Esterase 25 H Urine RBC 5-10 H Urine WBC 0-5 Ur Epithelial Cells 0-5 Urine Bacteria 1+ H Urine Culture Comments Culture to follow SARS-CoV-2 (PCR) - Medications Medications: Active Medications Calcium/Vitamin D (Calcarb 600 With Vitamin D) 1 tab PO BID JEAN-PAUL Stop: 04/23/20 21:01 Last Admin: 03/24/20 21:17 Dose: 1 tab Documented by: Cyclobenzaprine HCl (Flexeril) 10 mg PO TID PRN PRN Reason: Muscle Spasm Stop: 04/23/20 20:24 Last Admin: 03/25/20 04:40 Dose: 10 mg Documented by: Morphine Sulfate (Morphine Sulfate) 5 mg IV Q4H PRN PRN Reason: Pain Stop: 04/23/20 20:23 Last Admin: 03/25/20 04:39 Dose: 5 mg Documented by: Axitinib [Inlyta] 5 (Mg) 5 mg PO BID JEAN-PAUL Stop: 04/23/20 21:01 Last Admin: 03/25/20 06:25 Dose: Not Given Documented by: Senna/Docusate Sodium (Senokot-S) 2 tab PO BID JEAN-PAUL Stop: 04/23/20 21:01 Last Admin: 03/24/20 21:17 Dose: 2 tab Documented by: Discontinued Medications Diphenhydramine HCl (Benadryl) 50 mg IV ONCE ONE Stop: 03/24/20 12:27 Last Admin: 03/24/20 13:18 Dose: 50 mg Documented by: Sodium Chloride (Sodium Chloride 0.9%) 1,000 mls @ 125 mls/hr IV .Q8H ONE Stop: 03/24/20 20:25 Last Infusion: 03/24/20 22:19 Dose: Infused Documented by: Metoclopramide HCl (Reglan) 10 mg IV ONCE ONE Stop: 03/24/20 12:27 Last Admin: 03/24/20 13:15 Dose: 10 mg Documented by: Morphine Sulfate (Morphine Sulfate) 5 mg IV ONCE ONE Stop: 03/24/20 12:27 Last Admin: 03/24/20 13:09 Dose: 5 mg Documented by: Morphine Sulfate (Morphine Sulfate) 4 mg IV ONCE ONE Stop: 03/24/20 17:29 Last Admin: 03/24/20 17:35 Dose: 4 mg Documented by: Orphenadrine Citrate (Norflex) 60 mg IV ONCE ONE Stop: 03/24/20 14:20 Last Admin: 03/24/20 14:20 Dose: 60 mg Documented by: - Disposition Disposition: Short Term Hospital Inpatient Condition: Stable Discharge Date: 03/25/20 Discharge Time: 17:00
[2020-03-25] MEDS ORDERED: FUROSEMIDE 20 MG TABLET PO SCH (09:00)
[2020-03-25] MEDS ORDERED: PYRIDOXINE HCL (VITAMIN B6) 25 MG TABLET PO SCH (09:00)
[2020-03-25] MEDS ORDERED: CHOLECALCIFEROL 1,000 UNIT CAPSULE PO SCH (09:00)
[2020-03-25] MEDS ORDERED: BETA-CAROTENE(A) W-C , E/MIN 1 TAB TABLET PO SCH (09:00)
[2020-03-25] MEDS ORDERED: CYANOCOBALAMIN 1,000 MCG TABLET PO SCH (09:00)
[2020-03-25] MEDS ORDERED: MAGNESIUM OXIDE 400 MG TABLET PO SCH (09:00)
[2020-03-25] MEDS ORDERED: MULTIVITAMINS 1 CAP CAPSULE PO SCH (09:00)
[2020-03-25] MEDS ORDERED: FOLIC ACID 1 MG TABLET PO SCH (09:00)
[2020-03-25] MEDS: GABAPENTIN 300 MG CAPSULE PO SCH ×2 (09:11→14:30)
[2020-03-25] MEDS: SENNOSIDES/DOCUSATE SODIUM 1 TAB TABLET PO SCH (09:12)
[2020-03-25] MEDS: CALCIUM CARBONATE/VITAMIN D3 1 TAB TABLET PO SCH (09:12)
[2020-03-25] MEDS ORDERED: LIDOCAINE 1 PATCH ADH..PATCH TP SCH (17:00)
[2020-03-25 17:21] VITALS: BP 127/85
== END 2020-03-25 17:51 | disposition short-term general hospital (02) ==
LOC: ER 11:16 → MS 11:16
PROVIDERS: ADMIT Internal Medicine; ATTEND Internal Medicine
DX: Z98.890 Other specified postprocedural states; C79.51 Secondary malignant neoplasm of bone; M48.54XA Collapsed vertebra, not elsewhere classified, thoracic region, initial encounter for fracture; N18.31 Chronic kidney disease, stage 3a; C64.1 Malignant neoplasm of right kidney, except renal pelvis